=== PATIENT | male | born 2000 | race Two or more races ===

== ENCOUNTER → 2021-03-19 10:43 | Outpatient (BNVA) | payer OTHER, SELFPAY | PROVIDERS: Visit Provider Internal Medicine | DX: Z13.89 Encounter for screening for other disorder (principal) | CPT/HCPCS: 73030; 99203 ==

== ENCOUNTER → 2021-03-27 13:39 | Outpatient (BNVA) | payer OTHER, SELFPAY | PROVIDERS: Visit Provider Internal Medicine | DX: Z13.89 Encounter for screening for other disorder (principal) | CPT/HCPCS: 73050; 99214 ==

== ENCOUNTER → 2021-04-03 08:21 | Outpatient (BNVA) | payer OTHER, SELFPAY | PROVIDERS: Visit Provider Internal Medicine | DX: Z13.89 Encounter for screening for other disorder (principal) | CPT/HCPCS: 99213 ==

== ENCOUNTER → 2021-04-17 08:32 | Outpatient (BNVA) | payer OTHER, SELFPAY | PROVIDERS: Visit Provider Internal Medicine | DX: Z13.89 Encounter for screening for other disorder (principal) | CPT/HCPCS: 99213 ==

== ENCOUNTER → 2021-05-08 08:45 | Outpatient (BNVA) | payer OTHER, SELFPAY | PROVIDERS: Visit Provider Internal Medicine | DX: Z13.89 Encounter for screening for other disorder (principal) | CPT/HCPCS: 99213 ==

== ENCOUNTER → 2021-05-15 09:10 | Outpatient (BNVA) | payer OTHER, SELFPAY | PROVIDERS: Visit Provider Internal Medicine | DX: Z13.89 Encounter for screening for other disorder (principal) | CPT/HCPCS: 99213 ==

== ENCOUNTER → 2021-05-28 09:27 | Outpatient (BNVA) | payer OTHER, SELFPAY | PROVIDERS: Visit Provider Internal Medicine | DX: Z13.89 Encounter for screening for other disorder (principal) | CPT/HCPCS: 99213 ==

== ENCOUNTER 2021-06-01 10:00 | Outpatient (RCR) | payer OTHER, SELFPAY ==
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
== END 2021-06-01 12:47 | disposition home or self-care (01) ==
LOC: HO.PT 10:00
PROVIDERS: Visit Provider Internal Medicine
DX: M25.812 Other specified joint disorders, left shoulder (principal)
CPT/HCPCS: 97110; 97116; 97140; 97162; 97164; 97530

== ENCOUNTER → 2021-06-29 09:49 | Outpatient (BNVA) | payer OTHER, SELFPAY | PROVIDERS: Visit Provider Internal Medicine | DX: Z13.89 Encounter for screening for other disorder (principal) | CPT/HCPCS: 99213 ==